=== PATIENT | female | born 1950 | race Caucasian/White ===

== ENCOUNTER 2024-05-30 11:38 | Emergency (ER) | payer OTHER, BC ==
[2024-05-30 11:47] VITALS: BP 145/71; PULSE 100; RESP 16; TEMP 98.6; BMI 41.1
[2024-05-30] MEDS ORDERED: ACETAMINOPHEN 1000 MG/100 ML BAG IVPB ONE (12:21)
[2024-05-30] MEDS ORDERED: CLINDAMYCIN 600MG PREMIX IVPB 600 MG/50 ML BAG IVPB ONE ×2 (12:23→13:14)
[2024-05-30] MEDS ORDERED: ACETAMINOPHEN 325 MG TABLET (FP) ONE (13:14)
[2024-05-30] MEDS: ACETAMINOPHEN 500 MG TABLET (FP) PO ONE (13:46)
[2024-05-30] MEDS: CLINDAMYCIN 600MG PREMIX IVPB 600 MG/50 ML BAG IVPB ONE (13:47)
[2024-05-30 13:50] LABS: BASO % 0.4 % (0-2.0); EOS % 0.3 % (0-4.5); HEMATOCRIT 39.1 % (32.4-45.2); HEMOGLOBIN 13.3 GM/dL (10.7-15.3); LYMPH % 7.2 % (8-40); MCH 30.4 pg (25.7-33.7); MEAN CELL VOLUME 89.4 fl (80-96); MEAN PLT VOLUME 6.5 fl (7.5-11.1); MONO % 8.1 % (3.8-10.2); PLATELET COUNT 322 10^3/uL (134-434); RBC 4.37 M/mm3 (3.60-5.2); RDW 13.9 % (11.6-15.6); WHITE BLOOD COUNT 13.5 K/mm3 (4.0-10.0)
[2024-05-30 14:12] LABS: POTASSIUM 4.5 mmol/L (3.5-5.1)
[2024-05-30 14:15] LABS: ALBUMIN 3.6 g/dl (3.4-5.0); BLOOD UREA NITROGEN 11.9 mg/dL (7-18); CALCIUM 8.8 mg/dL (8.5-10.1)
[2024-05-30 14:18] LABS: CREATININE 0.9 mg/dL (0.55-1.3)
[2024-05-30 14:19] LABS: TOT PROT 6.8 g/dl (6.4-8.2)
== END 2024-05-30 14:50 | disposition left against medical advice (07) ==
LOC: JER 11:38
DX: N61.0 Mastitis without abscess (principal); R68.83 Chills (without fever)
CPT/HCPCS: 36415; 71045-TC-FY; 80053; 85025; 99284-25